=== PATIENT | male | born 1990 | race Caucasian/White ===

== ENCOUNTER 2018-09-30 01:35 | Emergency (ER) | payer OTHER ==
[~2018-09-30] VITALS: Ht 175.3 cm; Wt 85.6 kg
[2018-09-30 01:43] VITALS: BP 140/80; PULSE 52; RESP 18; Ht 175.3 cm; Wt 85.6 kg
[2018-09-30] MEDS ORDERED: D-ME118S24 PO (04:19)
[2018-09-30] MEDS ORDERED: ACET-141 PO (04:19)
--- NOTE | 2018-09-30 04:20 | ERD ---
ER Documentation Chief Complaint Chief Complaint sore throat x 2 days ROS All systems reviewed and are negative except as per history of present illness. Medications Home Meds Active Scripts Acetaminophen* (Acetaminophen*) 500 MG Extra Strength Tablet, 500 MG PO Q4H PRN for PAIN AND OR ELEVATED TEMP, #30 TAB Prov:KOMAL ZAMORA DO 09/30/18 D-Methorphan Hb/P-Epd HCl/Bpm (Jafbmjculq-Rnanvawzllr-Zn Syr) 118 Ml Syrup, 5 ML PO Q4H PRN for COUGH for 10 Days, #1 BOTTLE Prov:KOMAL ZAMORA DO 09/30/18 Allergies Allergies: Coded Allergies: No Known Drug Allergies (Verified Allergy, Unknown, 09/30/18) PMhx/Soc Medical and Surgical Hx: pt denies Medical Hx, pt denies Surgical Hx Hx Alcohol Use: Yes Hx Substance Use: Yes (MARIJUANA ) Hx Tobacco Use: No Smoking Status: Never smoker Physical Exam Vitals Vital Signs Date Temp Pulse Resp B/P (MAP) Pulse Ox O2 O2 Flow FiO2 Time Delivery Rate 09/30/18 97.2 52 18 140/80 99 01:43 (100) Physical Exam Const: No acute distress Head: Atraumatic Eyes: Normal Conjunctiva ENT: Normal External Ears, Nose and Mouth. Neck: Full range of motion. No meningismus. Resp: Clear to auscultation bilaterally Cardio: Regular rate and rhythm, no murmurs Abd: Soft, non tender, non distended. Normal bowel sounds Skin: No petechiae or rashes Back: No midline or flank tenderness Ext: No cyanosis, or edema Neur: Awake and alert Psych: Normal Mood and Affect Departure Diagnosis: Primary Impression: Sore throat Condition: Fair Patient Instructions: Self-Care for Sore Throats Referrals: [facility] YOU HAVE RECEIVED A MEDICAL SCREENING EXAM AND THE RESULTS INDICATE THAT YOU DO NOT HAVE A CONDITION THAT REQUIRES URGENT TREATMENT IN THE EMERGENCY DEPARTMENT. FURTHER EVALUATION AND TREATMENT OF YOUR CONDITION CAN WAIT UNTIL YOU ARE SEEN IN YOUR DOCTORS OFFICE WITHIN THE NEXT 1-2 DAYS. IT IS YOUR RESPONSIBILITY TO MAKE AN APPOINTMENT FOR FOLOW-UP CARE. IF YOU HAVE A PRIMARY DOCTOR --you should call your primary doctor and schedule an appointment IF YOU DO NOT HAVE A PRIMARY DOCTOR YOU CAN CALL OUR PHYSICIAN REFERRAL HOTLINE AT IF YOU CAN NOT AFFORD TO SEE A PHYSICIAN YOU CAN CHOSE FROM THE FOLLOWING [facility] [address] [facility] [facility]. [facility] [address] [facility] [facility] [address] [facility] [address] [facility] [facility] [address] [facility]. [facility] [address] Additional Instructions: Call your primary care doctor TOMORROW for an appointment during the next 1-2 days.See the doctor sooner or return here if your condition worsens before your appointment time. KOMAL ZAMORA DO Sep 30, 2018 04:20
== END 2018-09-30 05:23 | disposition home or self-care (01) ==
LOC: FTE 01:35
DX: J02.9 Acute pharyngitis, unspecified (principal)
CPT/HCPCS: 87880; Z7502; 99283